=== PATIENT | female | born 1980 | race Caucasian/White ===

== ENCOUNTER 2020-09-06 11:33 | Emergency (ER) | payer BC ==
--- NOTE | 2020-09-06 13:09 | TELE ---
HPI Do you have fever,cough or shortness of breath?: No - General History Source: Patient Exam Limitations: No Limitations - History of Present Illness Timing/Duration: unsure Associated Symptoms: reports: denies symptoms 09/06/20 13:07 40-year-old female with no past medical history presents to [facility] for COVID testing. Patient states son tested positive for COVID yesterday as he had nasal congestion and attends a local school. Patient denies smoking history. Past History - Travel History Traveled outside of the country in the last 30 days: No Close contact w/someone who was outside of country & ill: No - Psycho-Social/Smoking History Patient Lives Alone: No Lives with/in: spouse/SO Review of Systems - Review of Systems Able to Perform ROS?: No Limited Kyrgyz proficient: No Constitutional: No: Symptoms Reported HEENTM: No: Symptoms Reported Respiratory: No: Symptoms reported Cardiac (ROS): No: Symptoms Reported ABD/GI: No: Symptoms Reported : No: Symptoms Reported Musculoskeletal: No: Symptoms Reported Integumentary: No: Symptoms Reported Neurological: No: Symptoms reported *Physical Exam - Physical Exam General Appearance: No: Apparent Distress Respiratory/Chest: negative: Respiratory Distress Cardiovascular: negative: Edema Gastrointestinal/Abdominal: negative: Distended Extremity: positive: Normal Inspection Integumentary: positive: Normal Color Neurologic: positive: Motor Strength 5/5 (Ambulatory) - Medical Decision Making 09/06/20 13:09 Chief complaint: Patient here for COVID testing. Patient asymptomatic. Exam: Limited but otherwise normal. Plan: Covid test ordered. Discharge Diagnosis at time of Disposition: Encounter for laboratory testing for COVID-19 virus - Referrals Follow-up Referral(s): Bridgett Quiñones MD [Primary Care Provider] - - Patient Instructions - Discharge Disposition: HOME Condition at time of Disposition: Good
== END 2020-09-06 13:09 | disposition home or self-care (01) ==
LOC: JVIRT 11:33
DX: Z11.59 Encounter for screening for other viral diseases (principal)
CPT/HCPCS: C9803; Q3014-GT; U0003

== ENCOUNTER 2021-10-18 19:51 | Emergency (ER) | payer BC | END 2021-10-18 20:01 | disposition home or self-care (01) | LOC: JVIRT 19:51 | DX: Z11.52 Encounter for screening for COVID-19 (principal) | CPT/HCPCS: 99281-25; C9803; U0003; U0005 ==

== ENCOUNTER 2022-01-10 16:29 | Emergency (ER) | payer BC ==
[2022-01-11 13:11] LABS: SARS-CoV-2 NAA Not Detected (Not Detected)
== END 2022-01-10 17:48 | disposition home or self-care (01) ==
LOC: JVIRT 16:29
DX: Z20.822 Contact with and (suspected) exposure to COVID-19 (principal)
CPT/HCPCS: C9803; Q3014-GT; U0003; U0005